=== PATIENT | female | born 1990 | race Caucasian/White ===

== ENCOUNTER → 2017-10-20 11:30 | Outpatient (CLI) | payer OTHER, SELFPAY ==
[2017-10-21 09:11] LABS: Pregnancy, Serum, hCG Quali. NEGATIVE Negative (0-9 Nonpreg)
[2017-10-21 09:13] LABS: Progesterone Level 0.39 ng/mL (See Comment)
== END ==
PROVIDERS: Visit Provider Obstetrics & Gynecology
DX: Z30.430 Encounter for insertion of intrauterine contraceptive device (principal)
CPT/HCPCS: 84144; 84703

== ENCOUNTER 2017-10-21 15:57 | Observation (INO) | payer OTHER, SELFPAY ==
[2017-10-21 16:19] VITALS: BMI 35.9
[2017-10-21] MEDS: Dext 5%-0.45% NS 1,000 ML 125 ML IV (16:30)
[2017-10-21 16:42] VITALS: BP 149/97; PULSE 73; RESP 18; TEMP 36.9; O2SAT 99
[2017-10-21] MEDS: Tamsulosin HCl 0.4 MG Capsule PO (18:04)
[2017-10-21] MEDS: Ondansetron 4 MG/2 ML Vial IV (18:04)
[2017-10-21] MEDS: Morphine 2 MG/ML Syringe IV ×2 (18:05→20:48)
[2017-10-21] MEDS: 0.9% NaCl Peripheral Flush Adult/Peds IV ×2 (18:06→22:34)
--- NOTE | 2017-10-21 18:19 | NURSING ---
Addendum entered by Marli Kline 10/21/17 18:21: pt and notified of same. Original Note: This RN called OB and asked about morphine and zofran and if they are ok for mothers. Shraddha, RN notified this RN that both are fine, but if she plans to take morphine- have her take it after baby so that the effects will be minimal
[2017-10-21 19:03] LABS: Absolute Lymphocyte Count 0.83 X10^3/ul (0.83-4.51); Absolute Neutrophil Count 7.4 X10^3/uL (2.0-7.7); Basophil# 0.01 X10^3/uL; Basophil% 0.1 % (0-1); Eosinophil# 0.01 X10^3/uL; Eosinophils% 0.1 % (0-5); Hemoglobin 14.4 g/dl (12.0-15.0); Lymphocyte # 0.83 X10^3/ul (4.0); Lymphocyte % 9.4 % (19-41); Mean Corp Hgb Conc 33.5 g/gl (32-36); Mean Corpuscular Hgb 28.9 pg (27.0-32.0); Mean Corpuscular Volume 86.2 fL (81-99); Monocyte# 0.56 X10^3/uL; Monocyte% 6.3 % (0-10); Neutrophil # 7.44 X10^3/uL (2.7-7.7); Platelet Count 227 K/mm3 (150-450); RBC Distribution Width CV 13.2 % (11.6-14.6); RBC Distribution Width SD 41.3 fl (35.1-43.9); Red Blood Count 4.99 M/mm3 (4.2-5.4); White Blood Count 8.9 K/mm3 (4.4-11.0)
[2017-10-21 19:11] LABS: POSITIVE COUNT NO; POSITIVE DIFFERENTIAL NO; POSITIVE MORPHOLOGY NO
[2017-10-21 19:29] LABS: Anion Gap 9 (5-15); BUN 18 mg/dL (7-18); BUN/Creat Ratio 16.4 RATIO (10-20); Calcium,Total 7.8 mg/dL (8.5-10.1); Chloride 109 mmol/L (98-107); EST Glomerular Filtration Rate 63 mL/min (>60); Est Glom Filt Rate - Afr Amer 76 mL/min (>60); Estimated Creatinine Clearance 71.28 ml/min; Glucose 147 mg/dL (74-106); Sodium Level 141 mmol/L (136-145)
[2017-10-21 19:47] LABS: Pregnancy, Serum, hCG Quali. NEGATIVE Negative (0-9 Nonpreg)
[2017-10-21] MEDS: proMETHazine 25 MG/ML Syringe 12.5 MG IM (20:37)
[2017-10-21 20:43] VITALS: BP 149/99; PULSE 74; RESP 16; TEMP 36.9; O2SAT 98
[2017-10-21] MEDS: Ketorolac 30 MG/ML Syringe IV (22:34)
[2017-10-22] MEDS: Dext 5%-0.45% NS 1,000 ML 125 ML IV ×3 (01:07→20:35)
[2017-10-22 02:42] VITALS: BP 121/75; PULSE 71; RESP 16; TEMP 37.1; O2SAT 98
[2017-10-22] MEDS: Ketorolac 30 MG/ML Syringe IV (05:30)
[2017-10-22 08:02] VITALS: BP 132/86; PULSE 85; RESP 18; TEMP 36.6; O2SAT 98
--- NOTE | 2017-10-22 08:41 | NURSING ---
Addendum entered by Marli Kline 10/22/17 10:37: spoke with Dr. Chris- states patient may have IUD placed today. Sana RN MS manager home notified of situation and Lindsey olvera RN notified. State that patient may sign BHARATI form and leave for appointment at 0930. Same completed. Patient assisted downstairs at 0930 for 0945 appt and returned at 1030. Original Note: Call placed to Dr. Navarro's office- this RN spoke with nurse- Ashley. Notified of patient being admitted to hospital on ms2 and that patient had appt. today to have IUD placed at 0930. Notified Ashley that doctor has not rounded yet and we are uncertain at this time of plan. Noted that patient is pain free at this time but that we need to wait for further orders. Also notified that patient would like IUD placed while in hospital today. Gave work cell number to Ashley for direct contact if further information is needed
[2017-10-22] MEDS: 0.9% NaCl Peripheral Flush Adult/Peds IV ×3 (11:02→14:19)
--- NOTE | 2017-10-22 11:17 | RAD_ITS ---
STUDY: X-RAY - ABDOMEN/PELVIS REASON FOR EXAM: Female, 27 years old. History of kidney stones. TECHNIQUE: Two AP supine views of the abdomen and pelvis. COMPARISON: None. FINDINGS: Normal visualized lung bases. There is a moderate amount of colonic fecal material. The visualized liver, spleen and kidneys are grossly normal in size and morphology. There are calcified phleboliths in the pelvis. IUD is seen within the pelvis. Normal visualized osseous structures. RAD/Abdomen Single View IMPRESSION: Normal x-ray examination of the abdomen and pelvis. Electronically Signed: Zack Paul MD at 12:39 EDT Tel [phone], Service support ,
--- NOTE | 2017-10-22 11:30 | NURSING ---
Addendum entered by Marli Kline 10/22/17 11:45: pt returned to unit at this time from radiology Original Note: dr. lane called and notified that no stone has been passed but- patient continues to deny pain or nausea at this time and inquired if she would like KUB ordered at this time. Verified that she would like KUB- order placed, radiology called and notified of same- stated that it is ok to bring patient now. Patient taken from unit at this time
[2017-10-22 13:30] VITALS: BP 145/89; PULSE 88; RESP 18; TEMP 36.8; O2SAT 99
[2017-10-22] MEDS: Morphine 2 MG/ML Syringe IV ×3 (14:16→20:37)
--- NOTE | 2017-10-22 15:57 | PCM.HP.STD ---
Problem List (1) Hydronephrosis Status: Acute Qualifiers: Hydronephrosis type: with ureteral calculous obstruction Qualified Code(s): N13.2 - Hydronephrosis with renal and ureteral calculous obstruction (2) Renal colic on right side Status: Acute (3) Ureteral calculus Status: Acute History of Present Illness Date of Admission: 10/21/17 Chief Complaint: Uncontrolled right flank pain with nausea The patient is a 27 year old F [who presented to an [facility] emergency room with complaints of uncontrolled right-sided flank pain associated with nausea and vomiting. The patient has a 1-month-old son and is still breast-feeding. She has no other known medical problems. She has never had stones in the past. She has had no fever or chills. She has had no hematuria, dysuria, urgency or frequency. 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 History: - - Vaginal delivery ?4, last one being approximately 4 weeks ago Lives: With Family Smoking Status: Never smoker Alcohol: None Drugs: None Review of Systems Gastrointestinal: Reports: Nausea, Vomiting Musculoskeletal: Reports: Back Pain VTE Information - Inpt Only VTE Present on Admission: Yes VTE Mechan Device Prophylaxis: SCD's VTE Pharm Prophylaxis ordered?: No Reason prophylaxis not ordered:: Treatment Not Indicated - Physical Exam General: Alert, Oriented x3, Cooperative HEENT: Atraumatic Oral: Dry Mucosa Neck: Supple Lungs: Clear to auscultation, Normal air movement Cardiovascular: Regular rate Abdomen: Soft, Non Tender, Non-Distended Extremities: No edema, No Calf Tenderness Skin: No rashes Neurological: Cranial nerves II-XII grossly intact, Muscle tone normal Psych/Mental Status: Normal Affect, Appropriate Vital Signs Temp Pulse Resp BP Pulse Ox 98.3 F 88 18 145/89 H 99 10/22/17 13:30 10/22/17 13:30 10/22/17 13:30 10/22/17 13:30 10/22/17 13:30 Oxygen Delivery Method Room Air Weight: 100.9 kg Body Mass Index (BMI) 35.9 Intake and Output for Last 24 Hours 10/20/17 10/21/17 10/22/17 23:59 23:59 23:59 Intake Total 1167 / 1167 2606 / 2606 Output Total 200 / 200 900 / 900 Balance 967 / 967 1706 / 1706 Laboratory Tests Past 24 Hrs 10/21/17 10/21/17 10/21/17 18:25 18:25 18:25 WBC 8.9 RBC 4.99 Hgb 14.4 Hct 43.0 MCV 86.2 MCH 28.9 MCHC 33.5 RDW 13.2 RDW Differential 41.3 Plt Count 227 MPV 9.0 Immature Gran % (Auto) 0.100 Neut % (Auto) 84.0 H Lymph % (Auto) 9.4 L Ritchie % (Auto) 6.3 Eos % (Auto) 0.1 Baso % (Auto) 0.1 Absolute Neuts (auto) 7.4 Absolute Lymphs (auto) 0.83 Total Counted Not Reportable Sodium 141 Potassium 4.0 Chloride 109 H Carbon Dioxide 23.0 Anion Gap 9 BUN 18 Creatinine 1.10 H Estim Creat Clear Calc 71.28 Est GFR (MDRD) Af Amer 76 Est GFR (MDRD) Non-Af 63 BUN/Creatinine Ratio 16.4 Glucose 147 H Calcium 7.8 L Serum , Qual NEGATIVE Assessment/Plan All Active Problems Ureteral calculus (Acute) Hydronephrosis (Acute) Renal colic on right side (Acute) The patient has failed a trial of oral intake and pain control with oral medications and field. We will proceed with surgical intervention tomorrow with cystoscopy, right ureteroscopy, laser lithotripsy and right ureteral stent insertion. The risks benefits and alternatives were discussed with the patient and her . These include but are not limited to risks of anesthesia including cardiac, pulmonary risks, stroke, from anesthesia, bleeding, infection and injury from a surgical standpoint. She understands and agrees to proceed. We discussed that I recommend not breast-feeding for a minimum of 24 hours following surgery.
--- NOTE | 2017-10-22 16:07 | HP.PCM_ITS ---
Problem List (1) Hydronephrosis Status: Acute Qualifiers: Hydronephrosis type: with ureteral calculous obstruction Qualified Code(s) : N13.2 - Hydronephrosis with renal and ureteral calculous obstruction (2) Renal colic on right side Status: Acute (3) Ureteral calculus Status: Acute History of Present Illness Date of Admission: 10/21/17 Chief Complaint: Uncontrolled right flank pain with nausea The patient is a 27 year old F [who presented to an [facility] emergency room with complaints of uncontrolled right-sided flank pain associated with nausea and vomiting. The patient has a 1-month-old son and is still breast-feeding. She has no other known medical problems. She has never had stones in the past. She has had no fever or chills. She has had no hematuria, dysuria, urgency or frequency. The pain was uncontrolled at the outlying facility and a CT scan was obtained revealing a 7 mm right distal ureteral calculus.] Past Medical History Allergies No Known Allergies Allergy (Verified 10/21/17 16:35) Home Medications: Ambulatory Orders Medication Instructions Recorded Pnv No.122/Iron/Folic Acid 1 each PO DAILY 10/21/17 [ Multi Tablet] Hydrocodone Bitart/Apap 5-325 2 tab PO Q4H PRN PRN 7 Days #30 tab 10/23/17 [[place] 5/325] Surgical History: no surgical history [employer]ER History: - - Vaginal delivery ?4, last one being approximately 4 weeks ago Lives: With Family Smoking Status: Never smoker Alcohol: None Drugs: None Review of Systems Gastrointestinal: Reports: Nausea, Vomiting Musculoskeletal: Reports: Back Pain VTE Information - Inpt Only VTE Present on Admission: Yes VTE Mechan Device Prophylaxis: SCD's VTE Pharm Prophylaxis ordered?: No Reason prophylaxis not ordered:: Treatment Not Indicated - Physical Exam General: Alert, Oriented x3, Cooperative HEENT: Atraumatic Oral: Dry Mucosa Neck: Supple Lungs: Clear to auscultation, Normal air movement Cardiovascular: Regular rate Abdomen: Soft, Non Tender, Non-Distended Extremities: No edema, No Calf Tenderness Skin: No rashes Neurological: Cranial nerves II-XII grossly intact, Muscle tone normal Psych/Mental Status: Normal Affect, Appropriate Vital Signs Temp Pulse Resp BP Pulse Ox 98.3 F 88 18 145/89 H 99 10/22/17 13:30 10/22/17 13:30 10/22/17 13:30 10/22/17 13:30 10/22/17 13:30 Oxygen Delivery Method Room Air Weight: 100.9 kg Body Mass Index (BMI) 35.9 Intake and Output for Last 24 Hours 10/20/17 10/21/17 10/22/17 23:59 23:59 23:59 Intake Total 1167 / 1167 2606 / 2606 Output Total 200 / 200 900 / 900 Balance 967 / 967 1706 / 1706 Laboratory Tests Past 24 Hrs 10/21/17 10/21/17 10/21/17 18:25 18:25 18:25 WBC 8.9 RBC 4.99 Hgb 14.4 Hct 43.0 MCV 86.2 MCH 28.9 MCHC 33.5 RDW 13.2 RDW Differential 41.3 Plt Count 227 MPV 9.0 Immature Gran % (Auto) 0.100 Neut % (Auto) 84.0 H Lymph % (Auto) 9.4 L Grainger % (Auto) 6.3 Eos % (Auto) 0.1 Baso % (Auto) 0.1 Absolute Neuts (auto) 7.4 Absolute Lymphs (auto) 0.83 Total Counted Not Reportable Sodium 141 Potassium 4.0 Chloride 109 H Carbon Dioxide 23.0 Anion Gap 9 BUN 18 Creatinine 1.10 H Estim Creat Clear Calc 71.28 Est GFR (MDRD) Af Amer 76 Est GFR (MDRD) Non-Af 63 BUN/Creatinine Ratio 16.4 Glucose 147 H Calcium 7.8 L Serum , Qual NEGATIVE Assessment/Plan All Active Problems Ureteral calculus (Acute) Hydronephrosis (Acute) Renal colic on right side (Acute) The patient has failed a trial of oral intake and pain control with oral medications and field. We will proceed with surgical intervention tomorrow with cystoscopy, right ureteroscopy, laser lithotripsy and right ureteral stent insertion. The risks benefits and alternatives were discussed with the patient and her . These include but are not limited to risks of anesthesia including cardiac, pulmonary risks, stroke, from anesthesia, bleeding, infection and injury from a surgical standpoint. She understands and agrees to proceed. We discussed that I recommend not breast-feeding for a minimum of 24 hours following surgery.
[2017-10-22 20:55] VITALS: BP 143/80; PULSE 84; RESP 17; TEMP 36.9; O2SAT 99
[2017-10-22] MEDS: HYDROcodone Bitartrate/Apap 5/325 Tablet PO (21:12)
[2017-10-22] MEDS: Morphine 4 MG/ML Syringe IV (23:30)
[2017-10-23] VITALS (7 sets, daily range): BP systolic 128–134; BP diastolic 76–88; PULSE 87–97; RESP 16–18; TEMP 36.4–37.5; O2SAT 92–100; BMI 35.7
--- NOTE | 2017-10-23 | CALC_PTH ---
PATIENT: DAYANARA LADD LOC: MS2 U#:[id number] AGE/SX: 27/F ROOM: [id number] RE10/21/[address]: Dr. Princess Chris MD : 1990 BED: 1 DIS: 10/23/2017 SPEC #: [id number] RECD: 10/23/17 12:31 STATUS: JORGE ZOË #: [id number] FRANKLIN: 10/23/17 00:[address]: Princess Chris DEPT: SURGICAL PATHOLOGY RECD BY: Max Quintanilla Tissues: CALCULI Procedures: Surgery Specimen Level I HEADER OPERATION: Cysto, ureteroscopy, retro, laser, stent PRE-OP DIAGNOSIS: Hydronephrosis, renal colic on right, ureteral calculus TISSUE SUBMITTED: Calculi GROSS DIAGNOSIS Fragment of stone, clinically ureteral calculus, saved entirely for analysis if needed. COLIN:konstantin 10/26/17 COMMENT If chemical analysis is requested on this specimen, please notify the laboratory. GROSS DESCRIPTION Received without fixative is one container labeled with the patient's name and designated calculi. The specimen consists of a fragment of berry stone measuring 0.2 x 0.1 x 0.1 cm. The entire specimen is saved for stone analysis if needed. / COLIN:konstantin 10/26/17 CPT: 14504
[2017-10-23] MEDS: Dext 5%-0.45% NS 1,000 ML 125 ML IV (03:39)
[2017-10-23] MEDS: Morphine 4 MG/ML Syringe IV ×2 (03:41→08:23)
[2017-10-23] MEDS: HYDROcodone Bitartrate/Apap 5/325 Tablet PO (10:49)
--- NOTE | 2017-10-23 10:56 | NURSING ---
Patient transported to surgery, went along. Luis from [facility] visited pt prior to her leaving to discuss options. They state there is no reason she can not breastfeed post op after general anesthesia. The only times it is contraindicated is in terminal makeup operator morphine use or with radioactive dye tests. They will be providing pt with a pump post op so pt does not become uncomfortable. Milk is to be labeled and sent down to [facility] to be stored in fridge for future use.
--- NOTE | 2017-10-23 12:32 | PCM.DC.URO ---
Discharge Activity: May not drive while taking narcotic pain medications., May Shower, - - may take a tub bath when stent is out May resume sexual activity in: - - when stent is out Additional Instructions: please pull the string and remove the stent from the ureter on Thursday morning. Call if there are any difficulties. Allergies/Adverse Reactions: Allergies No Known Allergies Allergy (Verified 10/21/17 16:35) Medications to take at Discharge Pnv No.122/Iron/Folic Acid [ Multi Tablet] 1 each PO DAILY 10/21/17 Hydrocodone Bitart/Apap 5-325 [[place] 5/325] 2 tab PO Q4H PRN PRN 7 Days #30 tab 10/23/17 The following prescriptions were given: Hydrocodone Bitart/Apap 5-325 [[place] 5/325] 2 tab PO Q4H PRN PRN 7 Days #30 tab PRN Reason: Severe Pain (6-10/10) Test Results: Test results from this visit will be discussed in further detail at your follow-up appointment, if applicable. Please Follow Up With: Princess Chris MD When: in 2-3 weeks in the office, call [phone] for appt
--- NOTE | 2017-10-23 12:39 | DCINST_ITS ---
Discharge Activity: May not drive while taking narcotic pain medications., May Shower, - - may take a tub bath when stent is out May resume sexual activity in: - - when stent is out Additional Instructions: please pull the string and remove the stent from the ureter on Thursday morning. Call if there are any difficulties. Allergies/Adverse Reactions: Allergies No Known Allergies Allergy (Verified 10/21/17 16:35) Medications to take at Discharge Pnv No.122/Iron/Folic Acid [ Multi Tablet] 1 each PO DAILY 10/21/17 Hydrocodone Bitart/Apap 5-325 [[place] 5/325] 2 tab PO Q4H PRN PRN 7 Days #30 tab 10/23/17 The following prescriptions were given: Hydrocodone Bitart/Apap 5-325 [[place] 5/325] 2 tab PO Q4H PRN PRN 7 Days #30 tab PRN Reason: Severe Pain (6-10/10) Test Results: Test results from this visit will be discussed in further detail at your follow- up appointment, if applicable. Please Follow Up With: Princess Chris MD When: in 2-3 weeks in the office, call [phone] for appt
--- NOTE | 2017-10-23 14:02 | PCM.IMDPSTOP ---
Problem List (1) Hydronephrosis Status: Resolved (2) Renal colic on right side Status: Resolved (3) Ureteral calculus Status: Resolved Immediate Post-Op Note Date of Procedure: 10/23/17 Primary Surgeon/Physician: Princess Chris MD casting carrier: None Pre-Operative Diagnosis: Right distal ureteral calculus, hydronephrosis, right renal colic Post-Operative Diagnosis: Same Surgery/Procedure Performed:: Cystoscopy right ureteroscopy holmium laser lithotripsy, right stone basket extraction, right ureteral stent insertion Description of Surgical Findings:: Distal right ureteral calculus approximately 7-8 mm in size with hydroureteronephrosis. The stone was fragmented with the laser and removed with the basket without difficulty. A 6 x 24 stent was inserted without difficulty. Estimated Blood Loss: <5cc Specimen's removed: Stone fragment Type of Anesthesia:: General - Admit VTE Documentation VTE Mechan Device Prophylaxis: SCD's VTE Pharm Prophylaxis ordered?: No Reason prophylaxis not ordered:: Treatment Not Indicated
--- NOTE | 2017-10-23 14:05 | OP.PN_ITS ---
Problem List (1) Hydronephrosis Status: Resolved (2) Renal colic on right side Status: Resolved (3) Ureteral calculus Status: Resolved Immediate Post-Op Note Date of Procedure: 10/23/17 Primary Surgeon/Physician: Princess Chris MD textile designs sales representative: None Pre-Operative Diagnosis: Right distal ureteral calculus, hydronephrosis, right renal colic Post-Operative Diagnosis: Same Surgery/Procedure Performed:: Cystoscopy right ureteroscopy holmium laser lithotripsy, right stone basket extraction, right ureteral stent insertion Description of Surgical Findings:: Distal right ureteral calculus approximately 7-8 mm in size with hydroureteronephrosis. The stone was fragmented with the laser and removed with the basket without difficulty. A 6 x 24 stent was inserted without difficulty. Estimated Blood Loss: <5cc Specimen's removed: Stone fragment Type of Anesthesia:: General - Admit VTE Documentation VTE Mechan Device Prophylaxis: SCD's VTE Pharm Prophylaxis ordered?: No Reason prophylaxis not ordered:: Treatment Not Indicated
--- NOTE | 2017-10-23 14:08 | OP.PCM_ITS ---
Problem List (1) Hydronephrosis Status: Resolved Qualifiers: Hydronephrosis type: with ureteral calculous obstruction Qualified Code(s) : N13.2 - Hydronephrosis with renal and ureteral calculous obstruction (2) Renal colic on right side Status: Resolved (3) Ureteral calculus Status: Resolved Report of Operation Date of Procedure: 10/23/17 Pre-Operative Diagnosis: Right distal ureteral calculus, hydronephrosis, right renal colic Post-Operative Diagnosis: Same Surgery/Procedure Performed:: Cystoscopy right ureteroscopy holmium laser lithotripsy, right stone basket extraction, right ureteral stent insertion Description of Surgical Findings:: Distal right ureteral calculus approximately 7-8 mm in size with hydroureteronephrosis. The stone was fragmented with the laser and removed with the basket without difficulty. A 6 x 24 stent was inserted without difficulty. The patient is a 27-year-old female who presented to the emergency room with uncontrolled right-sided flank pain, nausea and vomiting. She was found to have a right-sided distal ureteral calculus approximately 7-8 mm in size. Did not pass with a trial of passage including IV fluids and Flomax. She elected to proceed with surgical intervention. All risks benefits and alternatives were discussed including the risks of anesthesia, bleeding infection and injury. Patient was taken to the operating room and placed on operating room table. A appropriate sign and and timeout were performed. Anesthesia monitored at the head and neck area IV access and vital signs throughout the case. Once anesthesia was a probably administered the patient's placed into dorsal lithotomy position was prepped and draped in usual sterile fashion. A cystourethroscopy was performed that did not reveal any pathology of the urinary bladder and the anatomy was normal. At this time the right ureteral orifice was identified and was intubated with a 0.035 Glidewire which passed around the stone to the renal pelvis confirmed on fluoroscopy. Using a second guidewire 0.025 in size, access to the ureter was gained using the semirigid ureteroscope. The stone was identified in the distal ureter and using the 270 laser fiber, settings of 6 Hz and 0.6 J, the stone was easily fragmented into several pieces. These fragments were then stone basket removed and sent for analysis. Using the existing 0.035 Glidewire, a 6 [place] 24 cm double-J stent easily passed with curling achieved in the renal pelvis as well as the urinary bladder. The string was left intact and was attached to the patient's right inner thigh with Steri-Strips and an OpSite. Patient was then awakened and taken to recovery room in good condition. There were no complications during this procedure. Type of Anesthesia:: General Specimen's removed: Stone fragment Estimated Blood Loss (mL): <5cc
== END 2017-10-23 17:00 | disposition home or self-care (01) ==
PROVIDERS: Admitting Provider Urology; Visit Provider Urology
PROC: 0TJ98ZZ Inspection of Ureter, Via Natural or Artificial Opening Endoscopic (ICD-10-PCS; CPT 52352; principal; 2017-10-23 07:20)
DX: N13.2 Hydronephrosis with renal and ureteral calculous obstruction (principal)
CPT/HCPCS: 00918; 52356; 36415; 74018; 76000; 80048; 84703; 85025; 88300; 96361; 96372; 96374; 96375; 96376; 99218; J7120; A4216; C1769; C2617; G0378; G0379; J2405; J7799

== ENCOUNTER → 2017-10-22 10:36 | Outpatient (CLI) | payer OTHER, SELFPAY ==
[2017-10-22 18:19] LABS: Chlamydia Trachomatis by PCR Negative (Negative); Neisserai gonorrhoeae by PCR Negative (Negative); Probe Check PASS; Sample Adequacy Control PASS; Specimen Processing Control PASS
== END ==
PROVIDERS: Visit Provider Obstetrics & Gynecology
DX: Z11.3 Encounter for screening for infections with a predominantly sexual mode of transmission (principal)
CPT/HCPCS: 87491; 87591; J2405

== ENCOUNTER → 2021-03-12 | Outpatient (CLI) | payer SELFPAY ==
[2021-03-20 22:50] LABS: HPV APTIMA, High Risk Negative (Negative); HPV Reflexed? YES, CHARGE PATIENT
== END | disposition home or self-care (01) ==
LOC: LABSPEC 03-13 10:38
PROVIDERS: Visit Provider Obstetrics & Gynecology
DX: Z12.4 Encounter for screening for malignant neoplasm of cervix (principal)
CPT/HCPCS: 87624; 88175; G0145